=== PATIENT | female | born 1975 | race American Indian/Alaskan Native ===

== ENCOUNTER 2017-04-28 09:59 | Emergency (ER) | payer SELFPAY ==
[2017-04-28 10:11] VITALS: BP 134/69
--- NOTE | 2017-04-28 12:20 | Emergency Department Report ---
Minor Respiratory - HPI Chief Complaint: Upper Respiratory Infection Stated Complaint: FLU SX Time Seen by Provider: 04/28/17 12:05 Duration: i week Pain Location: Facial, Chest Severity: mild Minor Respiratory: Yes Able to Tolerate Fluids, Yes Cough (productive of yellow sputum), Yes Chest Pain (only when she coughs), No Rhinorrhea, No Sore Throat, No Ear Pain, No Sick Contacts, No Hemoptysis, No Shortness of Breath, No Fever Other History: Patient is a 42-year-old black female was presented with cough cold congestion. Patient states she initially thought she just had a minor cold but now she has pain in her face is 6 out of 10 in severity worse when she landed down. Patient also has several days of nausea vomiting but that has resolved. ED Review of Systems ROS: Stated complaint: FLU SX Other details as noted in HPI Comment: All other systems reviewed and negative ED Past Medical Hx - Past Medical History Hx Hypertension: Yes Hx Heart Attack/AMI: Yes (nov 2014) Hx Congestive Heart Failure: No Hx Diabetes: No Hx Arthritis: Yes Hx Asthma: No Hx COPD: No Hx HIV: No - Surgical History Hx Coronary Stent: Yes (1) Hx Open Heart Surgery: No Hx Cholecystectomy: No Hx Appendectomy: No Hx Breast Surgery: No Additional Surgical History: tubal ligation - Social History Smoking Status: Current Every Day Smoker Substance Use Type: None - Medications Home Medications: Home Medications Medication Instructions Recorded Confirmed Last Taken Type Aspirin [Aspirin TAB] 81 mg PO QDAY 09/13/15 09/13/15 09/13/15 History Clopidogrel [Plavix] 75 mg PO QDAY #30 tablet 09/13/15 09/13/15 09/13/15 Rx Lisinopril [Zestril TAB] 40 mg PO QDAY #30 tablet 09/13/15 09/13/15 09/12/15 Rx Metoprolol [Lopressor TAB] 25 mg PO BID #60 tablet 09/13/15 09/13/15 09/12/15 Rx Simvastatin [Zocor TAB] 20 mg PO QHS #30 tablet 09/13/15 09/13/15 09/12/15 Rx Amoxicillin/Potassium Clav 1 each PO BID #14 tablet 04/28/17 Unknown Rx [Augmentin 875-125 Tablet] Fluticasone [Flonase] 1 spray NS QDAY #1 bottle 04/28/17 Unknown Rx HYDROcodone/ACETAMINOPHEN [[place] 1 each PO Q6HR PRN #12 tablet 04/28/17 Unknown Rx 5-325 Tablet] Ibuprofen [Motrin 800 MG tab] 800 mg PO Q8HR PRN #30 tablet 04/28/17 Unknown Rx predniSONE [Deltasone] 20 mg PO QDAY #5 tab 04/28/17 Unknown Rx Minor Respiratory Exam - Exam General: Vital signs noted. No distress. Alert and acting appropriately. HEENT: Yes Moist Mucous Membranes, Yes Frontal Tenderness, Yes Maxillary Tenderness, No Pharyngeal Erythema, No Pharyngeal Exudates, No Rhinorrhea, No Conjuctival Injection Ear: Neither TM Bulge, Neither TM Erythema, Neither EAC Pain, Neither EAC Discharge Neck: Yes Supple, No Adenopathy Lungs: Yes Good Air Exchange, No Wheezes, No Ronchi, No Stridor, No Cough, No Labored Respirations, No Retractions, No Use of Accessory Muscles, No Other Abnormal Lung Sounds Heart: Yes Regular, No Murmur Abdomen: Yes Normal Bowel Sounds, No Tenderness, No Peritoneal Signs Skin: No Rash, No Edema Neurologic: Alert and oriented, no deficits. Musculoskeletal: Unremarkable. ED Course Vital Signs 04/28/17 10:07 Temperature 97.9 F Pulse Rate 74 Respiratory 16 Rate Blood Pressure 134/69 O2 Sat by Pulse 98 Oximetry ED Medical Decision Making - Medical Decision Making Patient's lungs are clear her O2 sat is within normal limits and not believe that the patient needs a chest x-ray at this time. Patient does have significant tenderness on palpation of the sinuses will be started on Augmentin as well as other meds for symptomatic relief. Critical care attestation.: If time is entered above; I have spent that time in minutes in the direct care of this critically ill patient, excluding procedure time. ED Disposition Clinical Impression: Acute sinusitis Qualifiers: Sinusitis location: ethmoidal Recurrence: non-recurrent Qualified Code(s): J01.20 - Acute ethmoidal sinusitis, unspecified Upper respiratory infection Qualifiers: URI type: unspecified URI Qualified Code(s): J06.9 - Acute upper respiratory infection, unspecified Disposition: TO HOME OR SELFCARE Is pt being admited?: No Does the pt Need Aspirin: No Condition: Stable Instructions: Sinusitis (ED) Prescriptions: Amoxicillin/Potassium Clav [Augmentin 875-125 Tablet] 1 each PO BID #14 tablet Fluticasone [Flonase] 1 spray NS QDAY #1 bottle HYDROcodone/ACETAMINOPHEN [[place] 5-325 Tablet] 1 each PO Q6HR PRN #12 tablet PRN Reason: Pain Ibuprofen [Motrin 800 MG tab] 800 mg PO Q8HR PRN #30 tablet PRN Reason: Pain predniSONE [Deltasone] 20 mg PO QDAY #5 tab Referrals: PRIMARY CARE,MD [Primary Care Provider] - 3-5 Days Forms: Work/School Release Form(ED)
== END 2017-04-28 12:28 | disposition home or self-care (01) ==
LOC: ED 09:59
DX: J01.20 Acute ethmoidal sinusitis, unspecified (principal); I10 Essential (primary) hypertension; I25.2 Old myocardial infarction; M19.90 Unspecified osteoarthritis, unspecified site; F17.200 Nicotine dependence, unspecified, uncomplicated; Z98.51 Tubal ligation status; Z95.818 Presence of other cardiac implants and grafts; Z91.018 Allergy to other foods
CPT/HCPCS: 99281